=== PATIENT | female | born 1970 | race Caucasian/White ===

== ENCOUNTER 2017-05-12 08:46 | Emergency (ER) | payer OTHER ==
[~2017-05-12] VITALS: Ht 170.2 cm; Wt 98.0 kg
[~2017-05-12 08:46] MED LIST: CIPRO500 M1 PO; CLONAZEPAM1 M2 PO; ESCITALOPRAM OX10 MG PO; ESCITALOPRAM10 MG PO; FLAGYL500 MG PO; GABAPENTIN400 M2 PO; LEVOCETIRIZINE D5 M1 PO; LEVSIN0.125 M1 PO; LOPERAMIDE2 M2 PO; NAPROXEN500 MG PO; OXYCODONE HCL10 M2 PO; PRILOSEC40 MG PO; ZOFRAN4 M2 PO; ZOLPIDEM TARTRAT5 M1 PO
--- NOTE | 2017-05-12 10:18 | ED HEADACHE COMPLAINT ---
History of Present Illness General Chief Complaint: Headache Stated Complaint: MIGRANE Source: patient Exam Limitations: no limitations Vital Signs & Intake/Output Vital Signs & Intake/Output Vital Signs Date Time Temp Pulse Resp B/P B/P Pulse O2 O2 Flow FiO2 Mean Ox Delivery Rate 05/12 1235 98.7 88 20 120/80 98 Room Air 05/12 0849 98.7 107 15 120/84 96 Room Air Room Air Allergies Coded Allergies: prednisone (Severe, "I GAIN WEIGHT" 05/12/17) morphine (Intermediate, ITCHING 05/12/17) Reconcile Medications Ciprofloxacin HCl (Cipro) 500 MG TABLET 1 TAB PO BID diarrhea Clonazepam 1 MG TABLET 1 TAB PO BID ANXIETY (Reported) Escitalopram Oxalate 10 MG TABLET 1 TAB PO QPM MENTAL HEALTH (Reported) Gabapentin 400 MG CAPSULE 1 CAP PO TID UNKNOWN (Reported) Hyoscyamine (Levsin) 0.125 MG TABLET 1 TAB PO Q4 PRN abdominal cramps Levocetirizine Dihydrochloride 5 MG TABLET 1 TAB PO QPM ALLERGIES (Reported) Loperamide HCl (Loperamide) 2 MG CAPSULE 2 CAP PO Q6 PRN diarrhea Metronidazole (Flagyl) 500 MG TABLET 1 TAB PO Q6 Diarrhea Ondansetron HCl (Zofran) 4 MG TABLET 1 TAB PO Q6-8P PRN nausea/vomiting Oxycodone HCl 10 MG TABLET 1 TAB PO 4 TIMES/DAY PAIN (Reported) Zolpidem Tartrate 5 MG TABLET 1 TAB PO QPMP PRN SLEEP (Reported) Triage Note: PT TO ED FOR C/C OF MIGRAINE X 3 DAYS. PT HAS A NEUROSTIMULATOR WHICH USUALLY HELPS AND IS IN PAIN MANAGEMENT FOR GENERAL BODY PAINS BUT FEELS THE HEADACHE ISN'T IMPROVING AFTER TAKING PRESCRIBED PERCOCETS. +NAUSEA. ALL NEUROS INTACT. Triage Nurses Notes Reviewed? yes Onset: Gradual Duration: day(s): Timing: recent history Quality/Severity: severe, pressure Head Injury Location: global Modifying Factors: Worsens With: other. HPI: 47-year-old female with history of migraines status post neurostimulator presents to emergency department complaining of migraine 3 days. Patient is on 15 mg Percocet for pain management which have not been relieving her pain. Patient states that she was formerly on fentanyl patch over this was discontinued on Tuesday, her symptoms began the following day. Patient reports aura of dark floating spots in vision prior to migraine onset. Migraine described as generalized head, worse with bright lights or loud noises, associated with nausea. Patient reports that this headache feels the same in quality and severity compared to prior headaches. The patient denies recent fall or head trauma, blurry vision, abdominal pain, vomiting, fevers, chills. (Alicia Minor) Past History Travel History Traveled to [place] past 21 day No Medical History Any Pertinent Medical History? 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 No (Alicia Minor) Review of Systems Review of Systems Constitutional: Reports: no symptoms. Eyes: Reports: see HPI. Ears, Nose, Throat, Mouth: Reports: see HPI. Respiratory: Reports: no symptoms. Cardiovascular: Reports: no symptoms. Gastrointestinal/Abdominal: Reports: see HPI. Genitourinary: Reports: no symptoms. Musculoskeletal: Reports: no symptoms. Skin: Reports: no symptoms. Neurological/Psychological: Reports: see HPI. Hematologic/Endocrine: Reports: no symptoms. Endocrine: Reports: no symptoms. Immunologic/Allergic: Reports: no symptoms. All Other Systems: Reviewed and Negative (Alicia Minor) Physical Exam Physical Exam General Appearance: well developed/nourished, no apparent distress, alert, awake Head: atraumatic, normal appearance Eyes: Bilateral: normal appearance, PERRL, EOMI. Ears, Nose, Throat: normal pharynx, hearing grossly normal Neck: normal inspection, supple, full range of motion Respiratory: normal breath sounds, no respiratory distress, lungs clear Cardiovascular: regular rate/rhythm Gastrointestinal: normal bowel sounds, soft, non-tender, no organomegaly Back: normal inspection, normal range of motion Extremities: normal inspection, normal range of motion Psychiatric: awake, alert, oriented x 3 Cranial Nerves: normal hearing, normal speech, PERRL Coordination/Gait: normal gait Motor/Sensory: no motor/sensory deficits Skin: intact, normal color, warm/dry Core Measures Sepsis Present: No Sepsis Focused Exam Completed? No (Alicia Minor) Progress Differential Diagnosis: carotid dissection, encephalitis, IC mass/tumor, intracranial Hem., migraine HAGER, sinusitis, subarach. Hem., tension HAGER, temporal arteritis, TMJ syndrome Plan of Care: Current Medications Sig/Stephani Start time Last Medication Dose Stop Time Status Admin Diphenhydramine HCl 25 MG ONCE ONE 05/12 1029 UNVr (Benadryl) 05/12 103 Metoclopramide HCl 10 MG ONCE ONE 05/12 1030 UNVr (Reglan) 05/12 1031 Patient reports no relief in headache following IV Reglan and Benadryl. Patient 's headache started 24 hours following discontinuing sentinel patch, likely related to opioid withdrawal. Patient treated with IV Dilaudid and reports resolution of her headache. Patient states she has to go home at this time to help her boyfriend, feels relief of symptoms and feels ready to go. Patient is neurologically intact without focal neurologic deficit, headache is described as the same as her prior migraines. There is a low suspicion for ICH/intracranial abnormality, CT scan is deferred at this time based on low suspicion. Patient instructed to return to the emergency Department with any worsening symptoms other concerns. Otherwise she will follow-up with pain management regarding recent changes to her pain medications. The patient agrees with the plan of care. (Alicia Minor) Departure Departure Disposition: HOME OR SELF CARE Condition: Stable Clinical Impression Primary Impression: Migraine Qualifiers: Migraine type: with aura Status migrainosus presence: without status migrainosus Intractability: not intractable Qualified Code: G43.109 - Migraine with aura, not intractable, without status migrainosus Referrals: Audra BURDICK,Payal Johnson (PCP/Family) Additional Instructions: As discussed, follow-up with pain management regarding your headache possibly related to discontinuing fennel patch. Return to the emergency Department with any worsening symptoms or concerns. Please note that there might be incidental findings in your evaluation that are unrelated to the current emergency department visit. Please notify your primary care doctor about this emergency department visit in order to obtain and review all of the testing performed so that these incidental findings can be monitored as needed. If you had an x-ray performed, please understand that some fractures may not be seen on the initial set of x-rays. If your symptoms persist you might need a repeat set of x-rays to check for such a fracture. If you had a laceration evaluated, please understand that foreign bodies such as glass or wood may not be visible to the naked eye or on plain x-rays. If the wound becomes red, swollen, increasingly more painful or if there is any drainage from the wound, please have it reevaluated by a physician for the possibility of a retained foreign body. If you're unable to follow up as outlined in the discharge instructions please return to the emergency department. Thank you for choosing the [facility] Emergency Department for your care. It was a pleasure to serve you today. Departure Forms: Customer Survey General Discharge Information (Teresa GONZALES,Alicia Dangelo) PA/QUOTER Co-Sign Statement Statement: ED Attending supervision documentation- [] I saw and evaluated the patient. I have also reviewed all the pertinent lab results and diagnostic results. I agree with the findings and the plan of care as documented in the PA's/QUOTER's documentation. [X] I have reviewed the ED Record and agree with the PA's/QUOTER's documentation. [] Additions or exceptions (if any) to the PAs/QUOTER's note and plan are summarized below: [] (John Gonsalez DO)
[2017-05-12 12:35] VITALS: BP 120/80
== END 2017-05-12 12:35 ==
LOC: ERH 08:46
DX: G43.909 Migraine, unspecified, not intractable, without status migrainosus (principal)
CPT/HCPCS: 96374; 96375; J1200; J2765

== ENCOUNTER 2017-12-27 21:14 | Emergency (ER) | payer OTHER ==
[2017-12-27] MEDS ORDERED: AMITRIPTYLINE H10 M2 PO (22:05)
--- NOTE | 2017-12-27 22:09 | ED GENERAL ADULT ---
History of Present Illness General Chief Complaint: Lower Extremity Problems Stated Complaint: R LEG PAIN S/P FALL Source: patient Exam Limitations: no limitations Vital Signs & Intake/Output Vital Signs & Intake/Output Vital Signs Date Time Temp Pulse Resp B/P B/P Pulse O2 O2 Flow FiO2 Mean Ox Delivery Rate 12/278 97.9 99 18 125/81 98 Room Air Allergies Coded Allergies: prednisone (Severe, "I GAIN WEIGHT" 12/14/17) morphine (Intermediate, ITCHING 12/14/17) Reconcile Medications Amitriptyline HCl 10 MG TABLET 15 MG PO DAILY IBS (Reported) Ciprofloxacin HCl (Cipro) 500 MG TABLET 1 TAB PO BID diarrhea Clonazepam 1 MG TABLET 1 TAB PO BID ANXIETY (Reported) Escitalopram Oxalate 10 MG TABLET 1 TAB PO QPM MENTAL HEALTH (Reported) Gabapentin 400 MG CAPSULE 1 CAP PO TID UNKNOWN (Reported) Hyoscyamine (Levsin) 0.125 MG TABLET 1 TAB PO Q4 PRN abdominal cramps Levocetirizine Dihydrochloride 5 MG TABLET 1 TAB PO QPM ALLERGIES (Reported) Loperamide HCl (Loperamide) 2 MG CAPSULE 2 CAP PO Q6 PRN diarrhea Metronidazole (Flagyl) 500 MG TABLET 1 TAB PO Q6 Diarrhea Ondansetron HCl (Zofran) 4 MG TABLET 1 TAB PO Q6-8P PRN nausea/vomiting Oxycodone HCl 10 MG TABLET 1 TAB PO 4 TIMES/DAY PAIN (Reported) Zolpidem Tartrate 5 MG TABLET 1 TAB PO QPMP PRN SLEEP (Reported) Triage Note: PT TO ED S/P MECHANICAL SLIP AND FALL DOWN 5 STEPS TONIGHT. C/O PAIN TO RIGHT LOWER LEG JIMENEZ AREA. SMALL BRUISE NOTED. BRUISING ALSO NOTED TO LEFT UPPER ARM. HAS FULL ROM TO BOTH ARMS. ABLE TO BEAR WEIGHT WITH BOTH LEGS WITH DISCOMFORT. DENEIS HITTING HEAD, LOC OR TAKING BLOOD THINNERS. NO OBVIOUS DEFORMITY NOTED. Triage Nurses Notes Reviewed? yes HPI: 47-year-old female going down stairs when she slipped fell hurting her right lower extremity. Negative for head or neck pain. Negative for head trauma. Negative loss of consciousness. Past History Travel History Traveled to [place] past 21 day No Medical History Any Pertinent Medical History? 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 No Review of Systems Review of Systems Constitutional: Reports: no symptoms, see HPI. EENTM: Reports: no symptoms. Respiratory: Reports: no symptoms. Cardiovascular: Reports: no symptoms. GI: Reports: no symptoms. Genitourinary: Reports: no symptoms. Musculoskeletal: Reports: no symptoms. Skin: Reports: no symptoms. Neurological/Psychological: Reports: no symptoms. Hematologic/Endocrine: Reports: no symptoms. Immunologic/Allergic: Reports: no symptoms. All Other Systems: Reviewed and Negative Physical Exam Physical Exam General Appearance: no apparent distress, comfortable Comments: Gen.: Well-nourished, well-developed, no acute respiratory distress. Head: Normocephalic, atraumatic, nontender. Eyes: Normal inspection bilaterally, gisselle, EOMI Ears: Normal inspection bilaterally Nose: Normal inspection Throat/mouth : Moist mucosa Neck: Supple, full range of motion, no goiter, nontender Heart: Regular rate and rhythm, no murmurs rubs or gallops Lungs: Clear to auscultation bilaterally with normal air entry Chest: Nontender Back: Normal range of motion, nontender Abdomen: Soft, nontender, nondistended, normal bowel sounds Pelvis: Stable and nontender Extremities: Normal range of motion grossly, no cyanosis clubbing or edema, mild tenderness upon palpation of right ankle. Neurologic: Cranial nerves grossly intact, speech is clear Skin: Contusion to anterior lateral right calf. Psychiatric: Calm, cooperative, no apparent delusions or hallucinations Core Measures ACS in differential dx? No CVA/TIA Diagnosis: No Sepsis Present: No Sepsis Focused Exam Completed? No Progress Differential Diagnoses I considered the following diagnoses in my evaluation of the patient: Rule out fracture Plan of Care: Orders Procedure Date/time Status XRY-FOOT TWO VIEWS RIGHT 12/27 2205 Active [id number], RIGHT 12/27 2158 Active XRY-FOOT TWO VIEWS, LEFT 12/27 2158 Active Radiology Impression: no fracture Initial ED EKG: none Departure Departure Disposition: HOME OR SELF CARE Condition: Stable Clinical Impression Primary Impression: Leg pain, right Secondary Impressions: Fall Qualifiers: Encounter type: initial encounter Qualified Code: W19.XXXA - Unspecified fall, initial encounter Referrals: Audra BURDICK,Payal Johnson (PCP/Family) Additional Instructions: Rest ice and elevate affected extremity. Use [id number] anti- inflammatories as needed. Departure Forms: Customer Survey General Discharge Information Comments Please note that there might be incidental findings in your evaluation that are unrelated to the current emergency department visit. Please notify your primary care doctor about this emergency department visit in order to obtain and review all of the testing performed so that these incidental findings can be monitored as needed. If you had an x-ray performed, please understand that some fractures may not be seen on the initial set of x-rays. If your symptoms persist you might need a repeat set of x-rays to check for such a fracture. If you had a laceration evaluated, please understand that foreign bodies such as glass or wood may not be visible to the naked eye or on plain x-rays. If the wound becomes red, swollen, increasingly more painful or if there is any drainage from the wound, please have it reevaluated by a physician for the possibility of a retained foreign body. If you're unable to follow up as outlined in the discharge instructions please return to the emergency department. Critical Care Note Critical Care Note Critical Care Time: non-applicable
--- NOTE | 2017-12-27 22:36 | RADIOLOGY REPORT ---
EXAMINATIONS: RIGHT FOOT AND TIB/FIB 4 VIEWS CLINICAL INFORMATION: Pain after fall. COMPARISON: None. TECHNIQUE: AP and lateral views of the right foot were obtained in addition to AP and lateral views of the right tib-fib. FINDINGS: There are no fractures or dislocations. There is mild soft tissue swelling about the medial malleolus. No ankle joint effusion is identified. IMPRESSION: Mild soft tissue swelling without fracture or dislocation.
[2017-12-27 22:51] VITALS: BP 102/60
== END 2017-12-27 23:00 ==
LOC: ERH 21:14
DX: M79.604 Pain in right leg (principal)
CPT/HCPCS: 73590-RT; 73620-RT